=== PATIENT | female | born 1990 | race Caucasian/White ===

== ENCOUNTER 2018-08-22 23:55 | Emergency (ER) | payer MEDICAID, OTHER ==
[~2018-08-22] VITALS: Ht 157.5 cm; Wt 50.8 kg
[2018-08-23] MEDS ORDERED: LORAZEPAM 0.5 MG TABLET PO ONE (00:30)
[2018-08-23] MEDS ORDERED: LORAZEPAM 0.5 MG TABLET ONE (00:41)
[2018-08-23 00:52] LABS: *BILIRUBIN,URIN NEGATIVE (NEGATIVE); *BLOOD, URINE NEGATIVE (NEGATIVE); *CLARITY,URINE CLEAR (CLEAR); *COLOR,URINE STRAW (YELLOW); *KETONES,URINE NEGATIVE (NEGATIVE); *UROBILINOGEN,URINE 0.2 E.U./dl (NORMAL); LEUKOCYTE ESTERASE ,URINE NEGATIVE (NEGATIVE); NITRITE, URINE NEGATIVE (NEGATIVE); UGLUCOSE NEGATIVE (NEGATIVE)
[2018-08-23 00:56] LABS: *URINE HCG, QUAL NEGATIVE (NEGATIVE)
[2018-08-23 01:13] VITALS: BP 130/88
== END 2018-08-23 01:14 | disposition home or self-care (01) ==
LOC: ER 23:58
DX: F41.9 Anxiety disorder, unspecified (principal); F17.200 Nicotine dependence, unspecified, uncomplicated
CPT/HCPCS: 84703; A4663

== ENCOUNTER 2020-05-30 07:55 | Emergency (ER) | payer OTHER ==
[~2020-05-30] VITALS: Ht 160 cm; Wt 53.1 kg
[2020-05-30] MEDS ORDERED: ACETAMINOPHEN 325 MG TABLET PO ONE (08:30)
[2020-05-30] MEDS ORDERED: diphenhydrAMINE 25 MG CAP PO ONE (08:30)
[2020-05-30] MEDS ORDERED: PROCHLORPERAZINE EDISYLATE 10 MG/2 ML VIAL IV ONE (08:30)
[2020-05-30] MEDS ORDERED: PROCHLORPERAZINE EDISYLATE 10 MG/2 ML VIAL ONE (08:35)
[2020-05-30] MEDS ORDERED: diphenhydrAMINE 50 MG/1 ML VIAL ONE (08:35)
[2020-05-30] MEDS ORDERED: ACETAMINOPHEN ES 500 MG TABLET ONE (08:38)
[2020-05-30] MEDS ORDERED: SWABABLE VALVE TRANSFER SET EA MC ONE (08:40)
[2020-05-30] MEDS ORDERED: IOHEXOL 350 100 ML INFUS..BTL ONE (08:41)
[2020-05-30] MEDS ORDERED: IV NORMAL SALINE 250 ML IV ONE (08:41)
[2020-05-30 08:43] LABS: BASOPHILS % (AUTO) 0.5 % (0.0-2.0); EOSINOPHILS # (AUTO) 0.1 K/uL (0.0-0.7); LYMPHOCYTES # (AUTO) 0.5 K/uL (20.0-40.0); RED BLOOD CELL COUNT(AUTO) 4.39 MIL/uL (3.63-4.92)
[2020-05-30 08:45] LABS: HEMATOCRIT 38.8 % (31.2-41.9); HEMOGLOBIN 12.9 g/dL (10.9-14.3); LYMPHOCYTES % (AUTO) 24.2 % (20.5-51.5); MEAN CORPUSCULAR HEMOGLOBIN 29.5 uug (24.7-32.8); MEAN CORPUSCULAR HGB CONC 33 g/dL (32.3-35.6); MEAN CORPUSCULAR VOLUME 88.3 fL (75.5-95.3); MONOCYTES # (AUTO) 0.3 K/uL (2.0-10.0); MONOCYTES % (AUTO) 13.4 % (0.0-11.0); NEUTROPHILS # (AUTO) 1.1 K/uL (1.8-8.9); NEUTROPHILS % (AUTO) 58.9 % (38.5-71.5); PLATELET COUNT (AUTO) 171 K/uL (179-408)
[2020-05-30] MEDS ORDERED: diphenhydrAMINE 50 MG/1 ML VIAL IV ONE (08:45)
[2020-05-30 08:50] LABS: CREATININE 1.1 mg/dL (0.6-1.3); POTASSIUM 4.3 mmol/L (3.5-5.1)
[2020-05-30 08:57] LABS: WHITE BLOOD COUNT (AUTO) 1.9 K/uL (3.8-11.8)
[2020-05-30] MEDS ORDERED: KETOROLAC TROMETHAMINE 15 MG INJ IVP ONE (10:00)
[2020-05-30] MEDS ORDERED: IBUP-1955 PO (10:14)
[2020-05-30] MEDS ORDERED: ACET-2154 PO (10:14)
[2020-05-30] MEDS ORDERED: KETOROLAC TROMETHAMINE 15 MG INJ ONE (10:23)
[2020-05-30 10:35] VITALS: BP 109/61
--- NOTE | 2020-05-30 10:36 | NUR ---
Patient discharged to home in stable condition. Written and verbal after care instructions given. Patient verbalizes understanding of instructions. Stressed follow up or return to ER for worsening s/s.pt walks in steady gait. pt denies dizziness.
[2020-05-30 18:46] LABS: BAND % (MANUAL) 1 % (0-10); EOSINOPHILS % (MANUAL) 1 % (0-8); LYMPHOCYTES % (MANUAL) 26 % (20-40); MONOCYTES % (MANUAL) 12 % (2-10); NEUTROPHILS % (MANUAL) 59 % (42-75)
== END 2020-05-30 10:36 | disposition home or self-care (01) ==
LOC: ER 07:55
DX: R51.9 Headache, unspecified (principal); B34.9 Viral infection, unspecified; Z20.822 Contact with and (suspected) exposure to COVID-19; F17.200 Nicotine dependence, unspecified, uncomplicated; D72.819 Decreased white blood cell count, unspecified; D69.6 Thrombocytopenia, unspecified; D72.821 Monocytosis (symptomatic)
CPT/HCPCS: 36415; 70450; 70496; 80048; 85007; 85025; 85730; 87426; 96374; 96375; 99285; J0780; J1200; J1885; Q9967; U0003; 70030-TC; A4663; A9150; J7050

== ENCOUNTER 2020-06-26 18:12 | Emergency (ER) | payer OTHER ==
[~2020-06-26] VITALS: Ht 160 cm; Wt 53.5 kg
[~2020-06-26 18:12] MED LIST: ACET-2154 PO; IBUP-1955 PO
--- NOTE | 2020-06-26 19:00 | NUR ---
Assumed care of patient from day shift [place]. Patient came to ER with c/o of dysuria. Has Hx of UTI.
[2020-06-26 19:12] LABS: BASOPHILS % (AUTO) 0.2 % (0.0-2.0); EOSINOPHILS % (AUTO) 0.6 % (0.0-7.0); HEMATOCRIT 38.5 % (31.2-41.9); HEMOGLOBIN 12.8 g/dL (10.9-14.3); LYMPHOCYTES # (AUTO) 2.6 K/uL (20.0-40.0); LYMPHOCYTES % (AUTO) 38.7 % (20.5-51.5); MEAN CORPUSCULAR HEMOGLOBIN 29.2 uug (24.7-32.8); MEAN CORPUSCULAR HGB CONC 33 g/dL (32.3-35.6); MEAN CORPUSCULAR VOLUME 87.7 fL (75.5-95.3); MONOCYTES # (AUTO) 0.4 K/uL (2.0-10.0); MONOCYTES % (AUTO) 5.6 % (0.0-11.0); NEUTROPHILS # (AUTO) 3.6 K/uL (1.8-8.9); NEUTROPHILS % (AUTO) 54.9 % (38.5-71.5); PLATELET COUNT (AUTO) 260 K/uL (179-408); RED BLOOD CELL COUNT(AUTO) 4.39 MIL/uL (3.63-4.92); WHITE BLOOD COUNT (AUTO) 6.6 K/uL (3.8-11.8)
[2020-06-26 19:37] LABS: *BILIRUBIN,URIN NEGATIVE (NEGATIVE); *BLOOD, URINE TRACE (NEGATIVE); *CLARITY,URINE CLEAR (CLEAR); *COLOR,URINE YELLOW (YELLOW); *KETONES,URINE 1+ (NEGATIVE); *URINE HCG, QUAL NEGATIVE (NEGATIVE); *UROBILINOGEN,URINE 0.2 E.U./dl (NORMAL); LEUKOCYTE ESTERASE ,URINE NEGATIVE (NEGATIVE); NITRITE, URINE NEGATIVE (NEGATIVE); UGLUCOSE NEGATIVE (NEGATIVE)
[2020-06-26 19:44] LABS: BACTERIA,URINE NONE SEEN /HPF (NONE SEEN); SQUAMOUS EPITHELIAL CELL,UR MODERATE /HPF (NONE SEEN); WBC,URINE 0-3 /HPF (0-3)
[2020-06-26] MEDS ORDERED: PHEN-705 PO (20:10)
--- NOTE | 2020-06-26 20:33 | NUR ---
Dr. Flaherty on bedside.
--- NOTE | 2020-06-26 20:43 | NUR ---
Patient discharged to home in stable condition. Written and verbal after care instructions given. Patient verbalizes understanding of instructions. Stressed follow up or return to ER for worsening s/s. Patient ambulated fr the ER with steady gait. All belongings with patient.
[2020-06-26 20:44] VITALS: BP 144/77
== END 2020-06-26 20:44 | disposition home or self-care (01) ==
LOC: ER 18:14
DX: R30.0 Dysuria (principal); Z87.440 Personal history of urinary (tract) infections
CPT/HCPCS: 36415; 84703; 85025; A4663

== ENCOUNTER 2020-08-13 15:08 | Emergency (ER) | payer OTHER ==
[~2020-08-13] VITALS: Ht 157.5 cm; Wt 50.8 kg
[~2020-08-13 15:08] MED LIST changes: +PHEN-705 PO
--- NOTE | 2020-08-13 15:20 | NUR ---
DR Sheehan at the bedside for MSE.
[2020-08-13 15:26] LABS: *BILIRUBIN,URIN NEGATIVE (NEGATIVE); *CLARITY,URINE CLEAR (CLEAR); *COLOR,URINE YELLOW (YELLOW); *KETONES,URINE 2+ (NEGATIVE); *UROBILINOGEN,URINE 0.2 E.U./dl (NORMAL); LEUKOCYTE ESTERASE ,URINE NEGATIVE (NEGATIVE); NITRITE, URINE NEGATIVE (NEGATIVE); UGLUCOSE NEGATIVE (NEGATIVE)
[2020-08-13 15:27] LABS: *BLOOD, URINE TRACE LYSED (NEGATIVE)
[2020-08-13 15:28] LABS: *URINE HCG, QUAL NEGATIVE (NEGATIVE)
[2020-08-13 15:36] LABS: BACTERIA,URINE NONE SEEN /HPF (NONE SEEN); RBC,URINE 0-3 /HPF (0-3); SQUAMOUS EPITHELIAL CELL,UR FEW /HPF (NONE SEEN); WBC,URINE 0-3 /HPF (0-3)
[2020-08-13 15:39] LABS: BASOPHILS % (AUTO) 0.6 % (0.0-2.0); EOSINOPHILS % (AUTO) 0.4 % (0.0-7.0); HEMATOCRIT 38.4 % (31.2-41.9); HEMOGLOBIN 13.1 g/dL (10.9-14.3); LYMPHOCYTES # (AUTO) 1.7 K/uL (20.0-40.0); LYMPHOCYTES % (AUTO) 34.2 % (20.5-51.5); MEAN CORPUSCULAR HEMOGLOBIN 29.8 uug (24.7-32.8); MEAN CORPUSCULAR HGB CONC 34 g/dL (32.3-35.6); MEAN CORPUSCULAR VOLUME 87.6 fL (75.5-95.3); MONOCYTES # (AUTO) 0.3 K/uL (2.0-10.0); MONOCYTES % (AUTO) 5.8 % (0.0-11.0); NEUTROPHILS # (AUTO) 2.9 K/uL (1.8-8.9); PLATELET COUNT (AUTO) 260 K/uL (179-408); RED BLOOD CELL COUNT(AUTO) 4.39 MIL/uL (3.63-4.92); WHITE BLOOD COUNT (AUTO) 4.9 K/uL (3.8-11.8)
[2020-08-13 15:50] LABS: POTASSIUM 4.1 mmol/L (3.5-5.1)
[2020-08-13 15:56] LABS: BILIRUBIN,DIRECT 0.2 mg/dL (0.0-0.2); BILIRUBIN,TOTAL 0.9 mg/dL (0.2-1.0); TOTAL PROTEIN, SERUM 7.9 g/dL (6.4-8.2)
--- NOTE | 2020-08-13 16:04 | NUR ---
Female child neurologist accompanied female patient for ([employer] tech).
[2020-08-13 16:37] VITALS: BP 122/78
--- NOTE | 2020-08-13 16:37 | NUR ---
Patient discharged to home in stable condition. Written and verbal after care instructions given. Patient verbalizes understanding of instructions. Stressed follow up or return to ER for worsening s/s.
== END 2020-08-13 16:37 | disposition home or self-care (01) ==
LOC: ER 15:08
DX: R30.0 Dysuria (principal); R10.11 Right upper quadrant pain; R10.2 Pelvic and perineal pain
CPT/HCPCS: 36415; 76856; 83690; 84703; 85025; A4663

== ENCOUNTER 2020-09-15 17:18 | Emergency (ER) | payer OTHER ==
[~2020-09-15] VITALS: Ht 157.5 cm; Wt 49.9 kg
--- NOTE | 2020-09-15 18:06 | NUR ---
at bedside for assessment
[2020-09-15] MEDS ORDERED: AMOX-430 PO (21:09)
--- NOTE | 2020-09-15 21:27 | NUR ---
Patient discharged to home in stable condition. Written and verbal after care instructions given. Patient verbalizes understanding of instructions. Stressed follow up or return to ER for worsening s/s. Patient ambulated with steady gait.
[2020-09-15 21:28] VITALS: BP 131/79
== END 2020-09-15 21:28 | disposition home or self-care (01) ==
LOC: ER 17:18
DX: J01.90 Acute sinusitis, unspecified (principal)
CPT/HCPCS: 70450; A4663

== ENCOUNTER 2021-02-22 14:09 | Emergency (ER) | payer OTHER ==
[~2021-02-22] VITALS: Ht 157.5 cm; Wt 48.1 kg
[~2021-02-22 14:09] MED LIST changes: +AMOX-430 PO
[2021-02-22 14:44] LABS: *BILIRUBIN,URIN NEGATIVE (NEGATIVE); *BLOOD, URINE 3+ (NEGATIVE); *CLARITY,URINE CLOUDY (CLEAR); *COLOR,URINE Brown (YELLOW); *KETONES,URINE NEGATIVE (NEGATIVE); *UROBILINOGEN,URINE 0.2 E.U./dl (NORMAL); LEUKOCYTE ESTERASE ,URINE 1+ (NEGATIVE); NITRITE, URINE POSITIVE (NEGATIVE); PH,URINE 6.5 (5.0-8.0); UGLUCOSE NEGATIVE (NEGATIVE)
[2021-02-22 14:45] LABS: *URINE HCG, QUAL NEG (NEGATIVE)
--- NOTE | 2021-02-22 14:47 | NUR ---
PT IS IN ROOM #2A. DR GRAVES EVALUATED THE PT.
[2021-02-22] MEDS ORDERED: NITR100C11 PO (14:52)
--- NOTE | 2021-02-22 14:58 | NUR ---
PT WAS D/C'd TO HOME. D/C INSTRUCTIONS GIVEN TO THE PT BY DR GRAVES.
[2021-02-22 14:59] VITALS: BP 128/73
[2021-02-22 15:50] LABS: RBC,URINE TNTC /HPF (0-3)
[2021-02-26 20:07] LABS: *GC NAA Negative; *TRIC.VAG. NAA Negative
== END 2021-02-22 15:17 | disposition home or self-care (01) ==
LOC: ER 14:11
DX: N30.01 Acute cystitis with hematuria (principal)
CPT/HCPCS: 84703; 87077; 87086; 87491; A4663

== ENCOUNTER 2021-04-17 13:15 | Emergency (ER) | payer OTHER ==
[~2021-04-17] VITALS: Ht 157.5 cm; Wt 47.2 kg
[~2021-04-17 13:15] MED LIST changes: +NITR100C11 PO
[2021-04-17 13:40] LABS: *BILIRUBIN,URIN NEGATIVE (NEGATIVE); *BLOOD, URINE 3+ (NEGATIVE); *CLARITY,URINE CLEAR (CLEAR); *COLOR,URINE YELLOW (YELLOW); *KETONES,URINE NEGATIVE (NEGATIVE); *UROBILINOGEN,URINE 0.2 E.U./dl (NORMAL); LEUKOCYTE ESTERASE ,URINE 3+ (NEGATIVE); NITRITE, URINE NEGATIVE (NEGATIVE); PH,URINE 7.5 (5.0-8.0); UGLUCOSE NEGATIVE (NEGATIVE)
[2021-04-17 13:42] LABS: *URINE HCG, QUAL NEG (NEGATIVE)
[2021-04-17] MEDS ORDERED: PHEN-705 PO (15:16)
[2021-04-17] MEDS ORDERED: CEPH500C2 PO (15:16)
[2021-04-17 17:48] LABS: BACTERIA,URINE MODERATE /HPF (NONE SEEN); RBC,URINE 50-80 /HPF (0-3); WBC,URINE 50-80 /HPF (0-3)
[2021-04-17 17:49] LABS: SQUAMOUS EPITHELIAL CELL,UR FEW /HPF (NONE SEEN)
== END 2021-04-17 16:08 | disposition home or self-care (01) ==
LOC: ER 13:15
DX: N39.0 Urinary tract infection, site not specified (principal); Z88.2 Allergy status to sulfonamides
CPT/HCPCS: 84703; 87077; 87086; A4663

== ENCOUNTER 2021-05-17 10:32 | Emergency (ER) | payer OTHER ==
[~2021-05-17] VITALS: Ht 157.5 cm; Wt 47.2 kg
[~2021-05-17 10:32] MED LIST changes: +CEPH500C2 PO
[2021-05-17 10:46] LABS: *BILIRUBIN,URIN NEGATIVE (NEGATIVE); *BLOOD, URINE 2+ (NEGATIVE); *CLARITY,URINE CLEAR (CLEAR); *COLOR,URINE YELLOW (YELLOW); *KETONES,URINE NEGATIVE (NEGATIVE); *UROBILINOGEN,URINE 0.2 E.U./dl (NORMAL); LEUKOCYTE ESTERASE ,URINE 3+ (NEGATIVE); NITRITE, URINE NEGATIVE (NEGATIVE); UGLUCOSE NEGATIVE (NEGATIVE)
[2021-05-17 11:07] LABS: *URINE HCG, QUAL NEG (NEGATIVE)
[2021-05-17 11:16] LABS: HEMATOCRIT 37.9 % (31.2-41.9); MEAN CORPUSCULAR HEMOGLOBIN 30.1 uug (24.7-32.8); MEAN CORPUSCULAR VOLUME 89.2 fL (75.5-95.3); PLATELET COUNT (AUTO) 211 K/uL (179-408)
[2021-05-17] MEDS ORDERED: CEphaleXIN 500 MG CAPSULE PO ONE (11:30)
[2021-05-17] MEDS ORDERED: CEPH500C2 PO (11:39)
[2021-05-17] MEDS ORDERED: CEphaleXIN 500 MG CAPSULE ONE (11:43)
[2021-05-17 11:46] VITALS: BP 127/60
[2021-05-17 12:16] LABS: BACTERIA,URINE MODERATE /HPF (NONE SEEN); SQUAMOUS EPITHELIAL CELL,UR FEW /HPF (NONE SEEN); WBC,URINE 20-50 /HPF (0-3)
== END 2021-05-17 11:49 | disposition home or self-care (01) ==
LOC: ER 10:34
DX: N39.0 Urinary tract infection, site not specified (principal); Z87.440 Personal history of urinary (tract) infections; F17.200 Nicotine dependence, unspecified, uncomplicated
CPT/HCPCS: 36415; 84703; 85025; 87077; 87086; A4663

== ENCOUNTER 2021-07-09 06:55 | Emergency (ER) | payer OTHER ==
[~2021-07-09] VITALS: Ht 157.5 cm; Wt 47.2 kg
--- NOTE | 2021-07-09 07:07 | NUR ---
at bedside to examine pt.
[2021-07-09 07:24] LABS: *BILIRUBIN,URIN NEGATIVE (NEGATIVE); *BLOOD, URINE NEGATIVE (NEGATIVE); *CLARITY,URINE CLEAR (CLEAR); *COLOR,URINE YELLOW (YELLOW); *KETONES,URINE NEGATIVE (NEGATIVE); *UROBILINOGEN,URINE 0.2 E.U./dl (NORMAL); LEUKOCYTE ESTERASE ,URINE NEGATIVE (NEGATIVE); NITRITE, URINE NEGATIVE (NEGATIVE); UGLUCOSE NEGATIVE (NEGATIVE)
[2021-07-09 07:25] LABS: *URINE HCG, QUAL NEGATIVE (NEGATIVE)
--- NOTE | 2021-07-09 07:50 | NUR ---
DCD instructions given to pt. who verbalized understanding. Patient left ambulatory steady gait no visible or verbalized discomfort.
[2021-07-09] MEDS ORDERED: FLUC150T PO (07:51)
[2021-07-16] MEDS ORDERED: CEPH500C2 PO (12:31)
== END 2021-07-09 07:59 | disposition home or self-care (01) ==
LOC: ER 07:04
DX: B37.3 Candidiasis of vulva and vagina (principal); Z88.1 Allergy status to other antibiotic agents; Z88.2 Allergy status to sulfonamides
CPT/HCPCS: 84703; 87077; 87086; A4663

== ENCOUNTER 2021-07-25 06:56 | Emergency (ER) | payer OTHER ==
[~2021-07-25] VITALS: Ht 157.5 cm; Wt 47.2 kg
[~2021-07-25 06:56] MED LIST changes: +FLUC150T PO
[2021-07-25 07:26] LABS: *BILIRUBIN,URIN NEGATIVE (NEGATIVE); *BLOOD, URINE 3+ (NEGATIVE); *COLOR,URINE YELLOW (YELLOW); *KETONES,URINE NEGATIVE (NEGATIVE); *UROBILINOGEN,URINE 0.2 E.U./dl (NORMAL); LEUKOCYTE ESTERASE ,URINE 2+ (NEGATIVE); NITRITE, URINE POSITIVE (NEGATIVE); UGLUCOSE NEGATIVE (NEGATIVE)
[2021-07-25 07:32] LABS: *CLARITY,URINE HAZY (CLEAR)
[2021-07-25 07:41] LABS: *URINE HCG, QUAL NEGATIVE (NEGATIVE)
[2021-07-25 07:42] LABS: BACTERIA,URINE MANY /HPF (NONE SEEN); RBC,URINE TNTC /HPF (0-3); SQUAMOUS EPITHELIAL CELL,UR FEW /HPF (NONE SEEN); WBC,URINE 20-50 /HPF (0-3)
[2021-07-25] MEDS ORDERED: CEphaleXIN 500 MG CAPSULE PO ONE (08:00)
[2021-07-25] MEDS ORDERED: ONDANSETRON ODT 4 MG TAB.RAPDIS SL ONE (08:00)
[2021-07-25] MEDS ORDERED: PHENAZOPYRIDINE HCL 100 MG TABLET PO ONE (08:00)
[2021-07-25] MEDS ORDERED: PHENAZOPYRIDINE HCL 100 MG TABLET ONE (08:02)
[2021-07-25] MEDS ORDERED: CEPH500C2 PO (08:02)
[2021-07-25] MEDS ORDERED: PHEN-705 PO (08:02)
[2021-07-25] MEDS ORDERED: FLUC150T PO (08:02)
[2021-07-25] MEDS ORDERED: CEphaleXIN 500 MG CAPSULE ONE (08:03)
[2021-07-25] MEDS ORDERED: ONDANSETRON HCL 4 MG TABLET ONE (08:03)
--- NOTE | 2021-07-25 08:21 | NUR ---
PT WAS EVALUATED BY DR VELIZ. PT WAS D/C'd TO HOME. D/C INSTRUCTIONS GIVEN TO THE PT.
[2021-07-25 08:22] VITALS: BP 136/66
== END 2021-07-25 08:23 | disposition home or self-care (01) ==
LOC: ER 07:01
DX: N39.0 Urinary tract infection, site not specified (principal); Z88.1 Allergy status to other antibiotic agents; Z88.2 Allergy status to sulfonamides
CPT/HCPCS: 84703; 87077; 87086; A4663; Q0162

== ENCOUNTER 2022-02-18 11:27 | Emergency (ER) | END 2022-02-18 13:49 | disposition home or self-care (01) | DX: R10.84 Generalized abdominal pain (principal); K59.00 Constipation, unspecified; R30.0 Dysuria; R11.0 Nausea; Z88.1 Allergy status to other antibiotic agents; Z88.2 Allergy status to sulfonamides; Z87.440 Personal history of urinary (tract) infections; G35 Multiple sclerosis; Z79.899 Other long term (current) drug therapy; R10.2 Pelvic and perineal pain | CPT/HCPCS: 99284; 96374; 76856; 96375; 80076; 80048; 81003; 84703; 83690; 85025; 36415; J3490; J1885; J2405; J7040 ==

== ENCOUNTER 2022-05-01 18:14 | Emergency (ER) | payer OTHER ==
[~2022-05-01] VITALS: Ht 157.5 cm; Wt 47.2 kg
[~2022-05-01 18:14] MED LIST changes: +ONDA4TAB5 PO; +PHEN-704 PO; +POLY17PO4 PO
[2022-05-01] MEDS ORDERED: CEFTRIAXONE 1 G VIAL IM ONE (19:00)
--- NOTE | 2022-05-01 19:00 | NUR ---
Patient eloped from facility. ER physician Dr Fountain notified.
== END 2022-05-01 19:00 | disposition left against medical advice (07) ==
LOC: ER 18:36
DX: O23.40 Unspecified infection of urinary tract in pregnancy, unspecified trimester (principal); N39.0 Urinary tract infection, site not specified; O99.350 Diseases of the nervous system complicating pregnancy, unspecified trimester; G35 Multiple sclerosis; Z3A.00 Weeks of gestation of pregnancy not specified; Z53.29 Procedure and treatment not carried out because of patient's decision for other reasons; Z88.2 Allergy status to sulfonamides
CPT/HCPCS: A4663

== ENCOUNTER 2022-08-13 02:21 | Emergency (ER) | payer OTHER ==
[~2022-08-13] VITALS: Ht 157.5 cm; Wt 54.0 kg
--- NOTE | 2022-08-13 02:50 | NUR ---
PT AMB TO RM 4B WITH C/O PAIN IN LOWER ABD WHEN VOIDING.
[2022-08-13] MEDS ORDERED: IV NORMAL SALINE 1000 ML BAG IV ONE (03:15)
--- NOTE | 2022-08-13 04:20 | NUR ---
PT UP OOB AMB TO BR WITH STEADY GAIT. URINE COLLECTED/SENT.
[2022-08-13 04:38] LABS: *BILIRUBIN,URIN NEGATIVE (NEGATIVE); *BLOOD, URINE NEGATIVE (NEGATIVE); *CLARITY,URINE CLEAR (CLEAR); *COLOR,URINE YELLOW (YELLOW); *KETONES,URINE NEGATIVE (NEGATIVE); *UROBILINOGEN,URINE 0.2 E.U./dl (NORMAL); LEUKOCYTE ESTERASE ,URINE NEGATIVE (NEGATIVE); NITRITE, URINE NEGATIVE (NEGATIVE); UGLUCOSE NEGATIVE (NEGATIVE)
--- NOTE | 2022-08-13 05:15 | NUR ---
MD AT BEDSIDE FOR EVAL. UA IS NEGATIVE.
[2022-08-13] MEDS ORDERED: FAMOTIDINE 20 MG TABLET PO ONE (05:45)
[2022-08-13] MEDS ORDERED: FAMOTIDINE 20 MG TABLET ONE (05:51)
--- NOTE | 2022-08-13 06:00 | NUR ---
PT A,A AND O X 4, VSS AND PAIN HAS DECREASED TO 3.Patient discharged to home in stable condition. Written and verbal after care instructions given. Patient verbalizes understanding of instructions. Stressed follow up or return to ER for worsening s/s.PT AMB OUT WITH STEADY GAIT WITH S.O.
[2022-08-13 06:07] VITALS: BP 117/70
== END 2022-08-13 06:00 | disposition home or self-care (01) ==
LOC: ER 02:24
DX: R30.0 Dysuria (principal); Z88.2 Allergy status to sulfonamides; Z88.8 Allergy status to other drugs, medicaments and biological substances; Z79.1 Long term (current) use of non-steroidal anti-inflammatories (NSAID); Z79.899 Other long term (current) drug therapy
CPT/HCPCS: 99283; 96360; 81003; J7040; A4663